=== PATIENT | female | born 1945 | race Caucasian/White ===

== ENCOUNTER 2016-10-04 12:19 | Inpatient (IN) | payer OTHER ==
--- NOTE | 2016-10-04 12:25 | EDPHY ---
H & P Stated Complaint: CP/VOMITING THIS PAST FRIDAY HPI/ROS: CHIEF COMPLAINT: Chest pain, shortness of breath. HISTORY OF PRESENT ILLNESS: The patient is a 71-year-old female who presents after an episode of chest pain Friday (5 days ago). The pain was central and radiated to both axillary regions. It took her 2 hours to walk home from work; a walk that would normally take her 20 minutes. She had to stop frequently and rest because of substernal chest pain and shortness of breath. The pain subsided that night. Since then she has had increased exertional dyspnea but no chest pain. She denies fever, vomiting, cough, calf pain or leg swelling, or other complaints at this time. REVIEW OF SYSTEMS: Full review of systems not obtained because of time constraints. Source: Patient, Family Exam Limitations: No limitations - Personal History Current Tetanus/Diphtheria Vaccine: No - Medical/Surgical History Hx Asthma: No Hx Chronic Respiratory Disease: No Hx Diabetes: No Hx Cardiac Disease: No Hx Renal Disease: No Hx Cirrhosis: No Hx Alcoholism: No Hx HIV/AIDS: No Hx Splenectomy or Spleen Trauma: No - Social History Smoking Status: Current every day smoker Additional Social History: She works at [employer]. - Physical Exam Exam: General Appearance: Alert. Vital signs reviewed. Blood pressure 131/85, heart rate 101 at triage. Abbreviated exam due to time constraints. Eyes: Pupils equal and round, no conjunctival injection, no discharge. Anicteric. Neck: No lymphadenopathy, supple. Trachea midline. No jugular venous distention. Respiratory: Lungs are clear to auscultation; no wheezes, rales, or rhonchi. Cardiovascular: Regular rate and rhythm; no murmur, rub, or gallop. Gastrointestinal: Abdomen is soft and nontender, no masses or organomegaly, bowel sounds normal. Skin: Warm and dry, no rashes on exposed skin, normal color. Extremities: No lower extremity edema, no calf tenderness or swelling. Neurological: Alert and oriented. Moving all four extremities easily and equally. Psychiatric: Slightly anxious affect. Constitutional: Initial Vital Signs Temperature (C) 36.8 C 10/04/16 12:21 Heart Rate 101 H 10/04/16 12:21 Respiratory Rate 16 10/04/16 12:21 Blood Pressure 131/85 H 10/04/16 12:21 O2 Sat (%) 94 10/04/16 12:21 O2 Delivery Mode Room Air Allergies/Adverse Reactions: No Known Allergies Allergy (Unverified 10/04/16 12:20) Home Medications: Medication Instructions Recorded NK [No Known Home Meds] 10/04/16 Medical Decision Making - Diagnostics EKG Interpretation: 12 lead EKG is interpreted in Trace master View by emergency department physician. Anterior ST elevation with anterior Q-waves. ED Course/Re-evaluation: 71-year-old female presents after an episode of chest pain on Friday with ongoing shortness of breath. An EKG was ordered and showed anterior ST elevation with Q-waves present anteriorly. Cardiac alert was called. An IV was established and labs ordered. 1230: Cardiac alert called after EKG showed acute LA. 1232: Dr. Ugalde at bedside consulting the with patient. He is recommending lab systems analyst for the patient but she is unsure at this point. An echocardiogram will be done at bedside. 1235: Echocardiogram at bedside. 1242: Bedside echocardiogram report shows significant cardiac wall dysfunction. Patient to be taken to lab systems analyst immediately. Differential Diagnosis: Although initial differential diagnosis for chest pain included acute coronary syndrome, PE, pneumonia, costochondritis and pleurisy--it was quickly apparent, after reviewing the EKG, that this patient had an STEMI. Critical Care Time: I, Dr. Liz Jorge, personally spent a total of 30 minutes of critical care time including time spent obtaining a history, performing a physical exam, monitoring interventions, collecting and interpreting tests and in discussion with consultants. This does not include time spent performing procedures or physician investigative assistant time. Patient was at risk of cardiac deterioration and possible . - Data Points Laboratory Results: Laboratory Results 10/04/16 12:35 10/04/16 12:35 Medications Given: Discontinued Medications Aspirin (Aspirin) 324 mg PO EDNOW ONE Stop: 10/04/16 12:39 Last Admin: 10/04/16 12:55 Dose: 324 mg Sodium Chloride (Ns) 1,000 mls @ 100 mls/hr IV CONT THOMAS Stop: 10/05/16 01:14 Last Admin: 10/04/16 15:52 Dose: 1,000 mls Prasugrel (Effient) 60 mg PO ONCE ONE Stop: 10/04/16 15:02 Last Admin: 10/04/16 15:56 Dose: Not Given Departure - Departure Disposition: To OP Cath/Surgery Clinical Impression: STEMI (ST elevation myocardial infarction) Qualifiers: Involved coronary artery: unspecified coronary artery Qualified Code(s): I21.3 - ST elevation (STEMI) myocardial infarction of unspecified site Condition: Fair Report Scribed for: Liz Jorge Report Scribed by: Luis Hoyt Date of Report: 10/04/16 Time of Report: 12:43 Physician Review and Approval Statement: 10/04/16 12:24 Portions of this note were transcribed by the medical clinic manager. I, Dr. Liz Jorge, personally performed the history, physical exam, and medical decision- making; and confirmed the accuracy of the information in the transcribed note.
--- NOTE | 2016-10-04 12:30 | CPEKG ---
Heart Rate: 97 RR Interval: 619 P-R Interval: 152 QRSD Interval: 88 QT Interval: 332 QTC Interval: 422 P Rockholds: 70 QRS Rockholds: 1 T Wave Rockholds: 93 EKG Severity - ABNORMAL ECG - EKG Impression: SINUS RHYTHM EKG Impression: PROBABLE LEFT ATRIAL ABNORMALITY EKG Impression: LEFT VENTRICULAR HYPERTROPHY EKG Impression: INFERIOR INFARCT, ACUTE EKG Impression: ANTERIOR INJURY, EARLY ACUTE INFARCT Electronically Signed By: Liz Jorge 04-Oct-2016 13:21:56
[2016-10-04] MEDS ORDERED: ASPIRIN 81 MG CHEWABLE TAB ONE (12:38)
[2016-10-04] MEDS ORDERED: ASPIRIN 81 MG CHEWABLE TAB PO ONE (12:38)
[2016-10-04 12:45] LABS: % IMMATURE GRANULYOCYTES 0.6 % (0.0-1.1); ABSOLUTE IMMATURE GRANULOCYTES 0.09 10^3/uL (0.00-0.10); ADD DIFF? NO; ADD MORPH? NO; ADD SCAN? NO; ATYPICAL LYMPHOCYTE FLAG 40 (0-99); FRAGMENT RBC FLAG 0 (0-99); HEMATOCRIT 44.2 % (38.0-47.0); LEFT SHIFT FLG 0 (0-99); LIPEMIA HEMOLYSIS FLAG 90 (0-99); MEAN CELL HEMOGLOBIN 29.9 pg (27.9-34.1); MEAN CELL HEMOGLOBIN CONCENTR. 33.9 g/dL (32.4-36.7); MEAN PLATELET VOLUME 11.2 fL (8.7-11.7); PLATELET CLUMPS FLAG 0 (0-99); PLATELET COUNT 223 10^3/uL (150-400); RED BLOOD CELL COUNT 5.02 10^6/uL (4.18-5.33); RED CELL DISTRIBUTION WIDTH 13.4 % (11.5-15.2)
[2016-10-04] MEDS ORDERED: LIDOCAINE 1% 30 ML SDV ONE (12:47)
[2016-10-04] MEDS ORDERED: IOPAMIDOL (ISOVUE-370) 150 ML BTL IV ONE ×3 (12:48→13:35)
[2016-10-04] MEDS ORDERED: MIDAZOLAM 2 MG/2 ML VIAL ONE ×2 (12:50→13:20)
[2016-10-04] MEDS ORDERED: fentaNYL 100 MCG/2 ML INJ ONE ×2 (12:50→14:27)
[2016-10-04] MEDS ORDERED: BIVALIRUDIN 250 MG/5 ML VIAL IV ONE ×2 (13:09→14:10)
[2016-10-04] MEDS ORDERED: NITROGLYCERIN 1,500 MCG/15 ML VIAL MISC ONE (13:10)
[2016-10-04 13:12] LABS: ANION GAP 10 mEq/L (8-16); CALCIUM 9.2 mg/dL (8.5-10.4); CARBON DIOXIDE 23 mEq/l (22-31); CHLORIDE 104 mEq/L (97-110); CREATININE 0.7 mg/dL (0.6-1.0); GLOMERULAR FILTRATION RATE > 60; GLUCOSE 108 mg/dL (70-100); POTASSIUM 3.4 mEq/L (3.5-5.2); SODIUM 137 mEq/L (134-144)
[2016-10-04] MEDS ORDERED: ETOMIDATE 40 MG/20 ML INJ ONE (13:36)
[2016-10-04] MEDS ORDERED: HEPARIN 10,000 UNIT/10 ML MDV ONE (13:52)
[2016-10-04] MEDS ORDERED: ATROPINE SULFATE 1 MG/10 ML SYR ONE (13:56)
--- NOTE | 2016-10-04 13:56 | PDDXCAT ---
Diagnostic Cath Note - . Date: 10/04/16 Intervention: PTCA and drug eluting stent implantation, mechanical thrombectomy *Procedure 1. selective coronary angiography 2. PTCA and drug-eluting stent implantation x 4 (distal, mid and proximal LAD) 3. mechanical thrombectomy of the LAD Indication: I was called for an interventional consultation after the identification of a 100% mid LAD occlusion by Dr. Ugalde during diagnostic catheterization NAM 0 flow. The patient was having a subacute myocardial infarction with presentation that began on Friday. Access: right femoral artery *Materials Left Heart Cath size: 6F Left Heart Cath materials: JL4.0, Intuition Guide Wire, Intuition Guide Wire, 1.5 x 12 mm Emerge, 2.5 x 20 mm Emerge, Spiroflex 4F 135 cm, AngioJet, 1.5 x 12 mm Emerge, 2.5 x 20 mm Emerge, 2.5 x 38 mm Synergy, 2.75 mm Synergy, 2.5 x 16 mm Synergy, 3 x 12 mm Synergy drug eluting stent. *Findings-Selective Coronary Angiography LAD: There is a 100% mid LAD occlusion with NAM 0 flow. *Intervention A 6 Angolan JL4 guiding catheter was used for guide catheter support. A 0.014" Intuition Guide Wire was advanced across the mid LAD under direct fluoroscopic and angiographic guidance. A 1.5 x 12 mm Emerge balloon was used to pre-dilate the lesion under a maximum of 10 christiano of pressure. We upsized the balloon and exchanged with a 2.5 x 20 mm Emerge balloon. This was serially inflated to a maximum of 11 christiano of pressure. There was NAM I flow to the distal LAD. Status post balloon inflation, we proceeded with mechanical Thrombectomy with the use of a 4 Angolan Spiroflex catheter and AngioJet Thrombectomy system. Mechanical thrombectomy was performed to remove residual clot from the LAD proper. The AngioJet catheter was removed with injection revealing evidence of NAM II flow to the distal vessel. There was evidence of a distal LAD wire perforation and urgent echocardiography was performed. There was no evidence of cardiac tamponade and we proceeded with revascularization of the LAD. An Intuition Guide Wire was re-inserted into the distal LAD and a 2.5 x 38 mm Synergy drug eluting stent was was inflated under 14 christiano of pressure. The stent was removed and a 2.75 x 38 mm Synergy drug eluting stent was placed just proximal to the first stent. This was inflated to a maximum of 16 christiano of pressure. Angiographically, there was evidence of a contained dissection at the proximal end of the stent. This was repaired with a 2.5 x 16 mm Synergy drug eluting stent deployed under 11 christiano of pressure and in an overlapping fashion. Status post stent implantation, there was NAM II flow to the distal LAD. We then turned our attention to a plaque rupture just proximal to the LAD total occlusion. There was evidence of staining of the wall consistent with plaque rupture. For this reason, we placed a 3 x 12 mm Synergy drug eluting stent was under 12 christiano of pressure. Following the procedure these was NAM II flow to the distal vessel. No evidence of extravasation of contrast was identified. *Summary Complications: Wire perforation of the distal LAD. Estimated blood loss: <100 ml Closure method: Angioseal Assessment/Conclusion: 1. Subacute anterior myocardial infarction with a 100% occlusion of the mid LAD. This vessel was revascularized with drug-eluting stent implantation x 4 and residual clot was removed with mechanical thrombectomy. There was NAM II flow to the distal vessel with no evidence of extravasation of contrast status post intervention. The patient should be treated with terrance inhibitor, aldosterone antagonist, beta karina, high-dose statin and dual anti-platelet therapy with ASA and Effient. Brilinta was not utilized secondary to the patient's smoking history and high risk of shortness of breath related to therapy in a smoker. COUMADIN FOR THE FIRST SIX MONTHS MAY BE NECESSARY TO REDUCE RISK OF APICAL THROMBUS (THE ASA SHOULD BE DISCONTINUE AFTER THE FIRST 30 DAYS OF "TRIPLE THERAPY"). LIMITED ECHO SHOULD BE PERFORMED TOMORROW TO RULE OUT PERICARDIAL EFFUSION. Patient Problems: Problems Problem Status Onset STEMI (ST elevation myocardial infarction) Acute
[2016-10-04] MEDS ORDERED: PRASUGREL HCL 10 MG TAB PO ONE (15:01)
[2016-10-04] MEDS ORDERED: ATROPINE SULFATE 1 MG/10 ML SYR IVP PRN (15:01)
[2016-10-04] MEDS ORDERED: ONDANSETRON 4 MG/2 ML VIAL IVP PRN (15:01)
[2016-10-04] MEDS ORDERED: ACETAMINOPHEN 325 MG TAB PO PRN (15:01)
[2016-10-04] MEDS ORDERED: LORazepam 2 MG/ML INJ IVP PRN (15:01)
[2016-10-04] MEDS ORDERED: TEMAZEPAM 15 MG CAP PO PRN (15:01)
[2016-10-04] MEDS ORDERED: ONDANSETRON DISINTEGRATING 4 MG TAB PO PRN (15:01)
[2016-10-04] MEDS ORDERED: NITROGLYCERIN 0.4 MG BTL SL PRN (15:01)
[2016-10-04] MEDS ORDERED: PRASUGREL HCL 10 MG TAB ONE (15:09)
[2016-10-04] MEDS ORDERED: NS 1,000 ML IV SCH (15:15)
--- NOTE | 2016-10-04 15:20 | PDCARCONS ---
Cardiology Consult Reason for Consult: Abnormal ECG Chief Complaint: Chest pains with shortness of breath, five days ago Requesting Physician: ER History of Present Illness: Patient is a 71 y/o female with reportedly unremarkable past medical/ cardiovascular history (no CAD, HTN, HLP, or DM), who presented to [facility] ER with complaints of continued chest discomfort (not pain at present) as well as rather profound dyspnea with limited activity. ECG in the ER with diffuse, anterior ST elevation as well as deep, well defined Q waves to the anterior leads. No gen "chest pains" were being noted while she was assessed in the ER , but there was an expected degree of anxiety about the evolution of her evaluation. Family was present with the patient in the ER today, and given the ongoing ST elevations noted (without gen chest pains), we accelerated the desire for the patient to be taken emergently to the lab clerk for assessment of the lesion known to be involving the LAD. No voiced PND or orthopnea, no nausea or emesis. No dizziness, but moderate to severe dyspnea, weakness, and fatigue were noted. Remainder of the 10 point review of symptoms was unremarkable. History Information - Allergies/Home Medication List Allergies/Adverse Reactions: No Known Allergies Allergy (Unverified 10/04/16 12:20) Home Medications: NK [No Known Home Meds] 10/04/16 [Last Taken Unknown] I have personally reviewed and updated: family history, medical history, social history, surgical history - Past Medical History no pertinent PMH - Surgical History Reports: no pertinent surgical hx - Family History Positive for: non-pertinent - Social History Smoking Status: Current every day smoker Alcohol Use: None Drug Use: None Cardiac History - Cardiac History Cardiac Risk Factors: age > 65 Timing/Duration: Days Severity: severe Severity Scale: 10 Location: substernal, central, epigastric Activities at Onset: activity Modifying Factors: improves with: rest Associated Symptoms: chest pain, shortness of breath, weakness NAM Risk Evaluation age greater or equal to 65: yes greater or equal to 3 CAD risk factors: no known CAD(stenosis greater or eqaul to 50%): no ASA use in past 7 days: no severe angina(greater or equal to 2 episodes in 24hrs): yes EKG ST changes greater or equal to 0.5mm: yes positive cardiac marker: yes Total Score: 5 NAM Score: 26.2% risk Physical Exam Temp Pulse Resp BP Pulse Ox 36.9 C 78 18 123/85 H 93 10/04/16 12:56 10/04/16 12:56 10/04/16 12:56 10/04/16 12:56 10/04/16 12:56 Constitutional: appears nourished, not in pain, obese Eyes: PERRL Ears, Nose, Mouth, Throat: moist mucous membranes, hearing normal, ears appear normal Cardiovascular: regular rate and rhythym, JVD, pulses symmetric bilaterally, No edema Peripheral Pulses: 2+: dorsalis-pedis (R), dorsalis-pedis (L) Respiratory: no respiratory distress, no rales or rhonchi, reduced air movement (in the bases) Gastrointestinal: normoactive bowel sounds Skin: warm, normal color, No mottled Musculoskeletal: full muscle strength, no muscle tenderness Neurologic: AAOx3, sensation intact bilaterally, CN II-XII Intact Psychiatric: interacting appropriately, not encephalopathic, anxious Lab and Imaging 10/04/16 12:35 10/04/16 12:35 WBC 15.16 10^3/uL (3.80-9.50) H 10/04/16 12:35 RBC 5.02 10^6/uL (4.18-5.33) 10/04/16 12:35 Hgb 15.0 g/dL (12.6-16.3) 10/04/16 12:35 Hct 44.2 % (38.0-47.0) 10/04/16 12:35 MCV 88.0 fL (81.5-99.8) 10/04/16 12:35 MCH 29.9 pg (27.9-34.1) 10/04/16 12:35 MCHC 33.9 g/dL (32.4-36.7) 10/04/16 12:35 RDW 13.4 % (11.5-15.2) 10/04/16 12:35 Plt Count 223 10^3/uL (150-400) 10/04/16 12:35 MPV 11.2 fL (8.7-11.7) 10/04/16 12:35 Neut % (Auto) 73.7 % (39.3-74.2) 10/04/16 12:35 Lymph % (Auto) 11.9 % (15.0-45.0) L 10/04/16 12:35 Storey % (Auto) 13.3 % (4.5-13.0) H 10/04/16 12:35 Eos % (Auto) 0.2 % (0.6-7.6) L 10/04/16 12:35 Baso % (Auto) 0.3 % (0.3-1.7) 10/04/16 12:35 Nucleat RBC Rel Count 0.0 % (0.0-0.2) 10/04/16 12:35 Absolute Neuts (auto) 11.18 10^3/uL (1.70-6.50) H 10/04/16 12:35 Absolute Lymphs (auto) 1.81 10^3/uL (1.00-3.00) 10/04/16 12:35 Absolute Monos (auto) 2.01 10^3/uL (0.30-0.80) H 10/04/16 12:35 Absolute Eos (auto) 0.03 10^3/uL (0.03-0.40) 10/04/16 12:35 Absolute Basos (auto) 0.04 10^3/uL (0.02-0.10) 10/04/16 12:35 Absolute Nucleated RBC 0.00 10^3/uL (0-0.01) 10/04/16 12:35 Immature Gran % 0.6 % (0.0-1.1) 10/04/16 12:35 Immature Gran # 0.09 10^3/uL (0.00-0.10) 10/04/16 12:35 Sodium 137 mEq/L (134-144) 10/04/16 12:35 Potassium 3.4 mEq/L (3.5-5.2) L 10/04/16 12:35 Chloride 104 mEq/L (97-110) 10/04/16 12:35 Carbon Dioxide 23 mEq/l (22-31) 10/04/16 12:35 Anion Gap 10 mEq/L (8-16) 10/04/16 12:35 BUN 19 mg/dL (7-23) 10/04/16 12:35 Creatinine 0.7 mg/dL (0.6-1.0) 10/04/16 12:35 Estimated GFR > 60 10/04/16 12:35 Glucose 108 mg/dL (70-100) H 10/04/16 12:35 Calcium 9.2 mg/dL (8.5-10.4) 10/04/16 12:35 Troponin I 17.500 ng/mL (0-0.034) H 10/04/16 12:35 Visualized and Interpreted EKG results: Yes EKG Interpretation: Positive for: normal sinsus rhythm, ST elevation (deep Q waves to the precordial leads) Echocardiogram: Bedside echo with severe reduction in LVEF (20-25%) with large region of anteroapical akinesis noted. Basilar wall motion was grossly .. A/P Assessment: 71 y/o female with previously unremarkable past medical history, with likely large, anterior myocardial infarction several days ago (5 days). ECG in the ER today with ongoing ST elevation and deep Q waves to the anterior/anteroseptal leads. ECHO with dramatic akinesis to the aforementioned region of the heart. Strong recommendations for patient to proceed with angiography for better assessment of the degree of CAD noted, as well as attempt some degree of salvage to the remaining myocardium. Plan: will urgently take the patient to the cardiac lab clerk. Patient and family were in agreement with these plans. strong recommendations for complete smoking cessation (patient reportedly "quit" on Friday, in the midst of the symptoms being noted.
--- NOTE | 2016-10-04 15:30 | PDDXCAT ---
Diagnostic Cath Note - . 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 no obvious luminal irregularities were noted. LAD: Large vessel with minor luminal irregularities to the proximal and mid vessel. In the distal mid vessel, there was a 100% occlusion with limited left to left collaterals noted. This appears to be a relatively recent lesion. There was a sizable septal mohs surgeon with branch vessels, larger than "normal" likely secondary to collateral demand LCX: Large vessel with diffuse disease in the mid vessel that is 70-80% stenotic. There are extensive collaterals to the distal LAD as well as the aforementioned septal mohs surgeon. No obvious principal OM was noted. there were also left to right collaterals to the distal RCA RCA: Old 100% occlusion to the proximal vessel. There were small right to right collaterals noted, which did little for the mid portion of the RCA. Non dominant vessel. Ramus: Small sized vessel with diffuse disease throughout EDP: 27 mm Hg LVEF: 25% Wall motion: Akinesis to the anterior, anteroseptal, and anterolateral pollack Complications: none Assessment: 71 y/o female with critical, new mid LAD lesion as well as old 100% proximal RCA lesion. The new LAD lesion was likely the more acute of the two lesions. Plan: Dr. Marisol Murguia to attempt intervention to the mid LAD lesion. Intervention: pending Patient Problems: Problems Problem Status Onset STEMI (ST elevation myocardial infarction) Acute
--- NOTE | 2016-10-04 16:40 | CPEKG ---
Heart Rate: 89 RR Interval: 674 P-R Interval: 168 QRSD Interval: 90 QT Interval: 352 QTC Interval: 429 P Lignum: 72 QRS Lignum: 24 T Wave Lignum: 74 EKG Severity - ABNORMAL ECG - EKG Impression: SINUS RHYTHM EKG Impression: PROBABLE LEFT ATRIAL ABNORMALITY EKG Impression: ANTERIOR INFARCT, ACUTE EKG Impression: BORDERLINE ST ELEVATION, INFERIOR LEADS Electronically Signed By: David Ugalde 05-Oct-2016 10:39:24
[2016-10-04 16:56] LABS: CREATINE KINASE-MB FRACTION 4.92 ng/mL (0-3.19)
[2016-10-04 17:05] LABS: CK-MB INTERPRETATION NEGATIVE (NEGATIVE)
--- NOTE | 2016-10-04 17:43 | ECHO ---
[id number] + + [address] : : [place] [address] : : [phone] + + Adult Echocardiographic Report + + :Name: HONORIO VILLAVICENCIO Study Date: 10/04/2016 02:39 PM : : Hospital Admission Number: [id number] : :: 1945 Gender: Female : :Age: 71 yrs Race: PTNP : :Reason For Study: Eval for Pericardial Effusion : :History: Post GA, Cath : + + Left Ventricle Ejection Fraction = 25-30%. There is apical hypokinesis. Pericardium/Pleural trivial pericardial effusion. Conclusion This is a limited echo to evaluate for pericardial effusion during cath. Ejection Fraction = 25-30%. There is severe apical (entire region) akinesis. trivial pericardial effusion. Final Reading Physician: Genet Her signed on 10/04/2016 05:42 PM Ordering Physician: David Ugalde Performed By: Ambar Alejandro, MARGARETH
--- NOTE | 2016-10-04 17:50 | ECHO ---
[id number] + + [address] : : [place] [address] : : [phone] + + Adult Echocardiographic Report + + :Name: HONORIO VILLAVICENCIO Study Date: 10/04/2016 12:48 PM : : Hospital Admission Number: [id number] : :: 1945 Gender: Female : :Age: 71 yrs Race: PTNP : :Reason For Study: Cardiac alert/eval LV function : + + Left Ventricle EF estimate is 20-25%. All LV mid and apical segments are akinetic. Conclusion Limited 2-D echo. All LV mid and apical segments are akinetic. EF estimate is 20-25%. Final Reading Physician: Genet Her signed on 10/04/2016 05:48 PM Ordering Physician: SUZETTE PEREZ Performed By: Ambar Alejandro RDCS
[2016-10-04] MEDS: CARVEDILOL 3.125 MG TAB PO SCH (18:45)
[2016-10-04 19:22] LABS: CREATINE KINASE-MB FRACTION 6.24 ng/mL (0-3.19)
[2016-10-04 19:36] LABS: CK-MB INTERPRETATION NEGATIVE (NEGATIVE)
[2016-10-04 22:11] LABS: CK-MB INTERPRETATION NEGATIVE (NEGATIVE)
[2016-10-05 04:50] LABS: % IMMATURE GRANULYOCYTES 0.8 % (0.0-1.1); ABSOLUTE IMMATURE GRANULOCYTES 0.09 10^3/uL (0.00-0.10); ADD DIFF? NO; ADD MORPH? NO; ADD SCAN? NO; ATYPICAL LYMPHOCYTE FLAG 60 (0-99); FRAGMENT RBC FLAG 0 (0-99); HEMOGLOBIN 12.3 g/dL (12.6-16.3); LEFT SHIFT FLG 10 (0-99); LIPEMIA HEMOLYSIS FLAG 80 (0-99); MEAN CELL HEMOGLOBIN 30.2 pg (27.9-34.1); MEAN CELL HEMOGLOBIN CONCENTR. 33.2 g/dL (32.4-36.7); MEAN CELL VOLUME 90.9 fL (81.5-99.8); MEAN PLATELET VOLUME 11.4 fL (8.7-11.7); PLATELET CLUMPS FLAG 0 (0-99); PLATELET COUNT 193 10^3/uL (150-400); RED BLOOD CELL COUNT 4.07 10^6/uL (4.18-5.33); RED CELL DISTRIBUTION WIDTH 13.3 % (11.5-15.2)
[2016-10-05 05:04] LABS: ALBUMIN 2.5 g/dL (3.5-5.0); ANION GAP 4 mEq/L (8-16); ASPARTATE AMINOTRANSFERASE 69 IU/L (14-46); BILIRUBIN,TOTAL 1.1 mg/dL (0.1-1.4); CALCIUM 8.4 mg/dL (8.5-10.4); CARBON DIOXIDE 25 mEq/l (22-31); CHLORIDE 108 mEq/L (97-110); CREATININE 0.6 mg/dL (0.6-1.0); GLOMERULAR FILTRATION RATE > 60; GLUCOSE 92 mg/dL (70-100); LACTATE DEHYDROGENASE 2002 IU/L (313-618); MAGNESIUM 2.1 mg/dL (1.6-2.3); POTASSIUM 3.5 mEq/L (3.5-5.2); SODIUM 137 mEq/L (134-144)
[2016-10-05 05:58] LABS: CK-MB INTERPRETATION NEGATIVE (NEGATIVE)
[2016-10-05] MEDS: EPLERENONE 25 MG TAB PO SCH (08:04)
[2016-10-05] MEDS: ASPIRIN EC 325 MG TAB PO SCH (08:07)
[2016-10-05] MEDS: ATORVASTATIN CALCIUM 40 MG TAB PO SCH (08:07)
[2016-10-05] MEDS: CARVEDILOL 3.125 MG TAB PO SCH ×2 (08:07→18:04)
[2016-10-05] MEDS: LISINOPRIL 2.5 MG TAB PO SCH (08:07)
[2016-10-05] MEDS: PRASUGREL HCL 10 MG TAB PO SCH (08:08)
--- NOTE | 2016-10-05 10:53 | ECHO ---
[id number] + + [address] : : [place] [address] : : [phone] + + Adult Echocardiographic Report + ---------+ :Name: HONORIO VILLAVICENCIO Date: 10/05/2016 09:14 AM : : Hospital Admission Number: [id number] Autumn no: 256: :: 1945 Gender: Female Height: 63 i n : :Age: 71 yrs Race: PTNP Weight: 147 lb : :Reason For Study: R/O pericardial effusion : : BSA: 1.7 met ers2 : + ---------+ MMode/2D Measurements \T\ Calculations LVLd ap4: 8.1 cm SV(MOD-sp4): 33.0 ml EDV(MOD-sp4): 94.0 ml LVLs ap4: 8.0 cm ESV(MOD-sp4): 61.0 ml EF(MOD-sp4): 35.1 % Normal Measurement Values: + + :LVIDd (3.5-5.7cm) IVSd (0.6-1.1cm) LVPWd (0.6-1.1cm) Aortic Root (2.0-3.7cm)Left Atrium (1.5-4.0cm): :LV Vol(d) (76-115ml) LV Vol(s) (29-48ml) Ejec Fraction (50-65%)PV Dexter (0.6- 1.2m/s) TV Dexter (0.4-1.0m/s) : :MV E Dexter (0.8-1.0m/s)MV A Dexter (0.3-1.0m/s)LVOT Dexter (0.7-1.2m/s) Asc Ao Dexter ( 0.9-1.8m/s) : + + Left Ventricle Ejection Fraction = 30-35%. Akinetic [place]. Pericardium/Pleural There is a fat pad seen. There is no pericardial effusion. Conclusion This is a limited echo to eval the LV and r/o pericardial effusion. Ejection Fraction = 30-35%. Mid to distal anterior wall, apex and mid to distal septum are akinetic. There is no pericardial effusion. Final Reading Physician: Ramon Johnson MD electronically signed on 10/05/2016 10:51 AM Ordering Physician: Saul Murguia Performed By: Kirti Solis
--- NOTE | 2016-10-05 12:03 | PDCARPN ---
Cardiology Progress Note Chief Complaint: Subacute presentation of anterior UT, sp stents Assessment/Plan: Assessment: Subacute presentation of anterior myocardial infarction Multiple stents to LAD, microperforation of LAD Plan: - echocardiogram today does not show any pericardial effusion but does show LV EF of 25-30% with mid to distal anterior wall, mid to distal septum and apex akinetic. - Patient had several questions regarding here starting blood pressure medications despite her blood pressure being in the low 100s, explain pathophysiology after acute myocardial infarction to her in presence of nurse . She is agreeable to taking eplerenone, ANGIE-inhibitor and beta-karina at the current doses. Given borderline low blood pressure will watch in the ICU. - Discussed risk of LV thrombus with large anterior myocardial infarction. Will start her on warfarin for 3-6 months. We discussed risk of triple therapy including life-threatening bleeding and she understands the rationale for adding warfarin to her antiplatelet agents - we discussed the need for life vest upon discharge. This will be arranged on Friday. Her left ventricular ejection fraction will need to be assessed at 45 days and if still less than 35%, she is a candidate for an ICD. 10/05/16 12:00 Subjective: Feels well today, denies any chest pain. Does have several questions. Reviewed/Discussed With: multidisciplinary team Time Spent With Patient: 30 minutes Objective: Vital Signs (8 Hrs) Temp Pulse Resp BP Pulse Ox 10/05/16 11:00 79 22 H 110/68 94 10/05/16 10:00 72 13 101/87 H 93 10/05/16 09:00 76 13 103/56 L 93 10/05/16 08:07 86 108/64 10/05/16 08:00 86 22 H 101/87 H 94 10/05/16 07:00 78 20 101/63 93 10/05/16 06:00 85 18 106/64 96 10/05/16 04:00 37.0 C 80 18 109/60 96 Intake/Output (24 Hrs) 10/03/16 10/04/16 10/05/16 11:59 11:59 11:59 Intake Total 2315 Output Total 1200 Balance 1115 Intake: Oral (ml) 1060 IV Intake (ml) 1000 IV Infused (ml) 255 Ns 1,000 ml @ 100 mls/hr 255 IV CONT THOMAS Rx#: [id number] Output: Urine (ml) 1200 Bedpan 1200 Other: Weight 67 kg Number of Voids Bedpan 0 Result Diagrams: 10/05/16 04:30 10/05/16 04:30 Cardiac Labs: Cardiac Lab Results (72 Hrs) 10/05/16 10/05/16 10/04/16 04:30 04:30 21:00 CK-MB (CK-2) Fraction 15.50 H 12.50 H Troponin I 19.800 H 20.600 H 10/04/16 10/04/16 18:20 16:10 CK-MB (CK-2) Fraction 6.24 H 4.92 H Troponin I 20.200 H 21.200 H Telemetry: Sinus rhythm, ST-elevation, no ventricular arrhythmias Echocardiogram: no pericardial effusion. Left ventricular ejection fraction with findings consistent w completed anterior myocardial infarction ICD10 Worksheet Patient Problems: Problems Problem Status Onset STEMI (ST elevation myocardial infarction) Acute
--- NOTE | 2016-10-05 12:54 | CPEKG ---
Heart Rate: 76 RR Interval: 789 P-R Interval: 172 QRSD Interval: 98 QT Interval: 392 QTC Interval: 441 P Ariel: 71 QRS [place]: 56 T Wave [place]: 77 EKG Severity - ABNORMAL ECG - EKG Impression: SINUS RHYTHM EKG Impression: ANTERIOR INFARCT, ACUTE EKG Impression: ST ELEVATION, CONSIDER PERICARDITIS OR LARGE ANTERIOR ACUTE MS Electronically Signed By: Patrick Reddy 07-Oct-2016 08:38:17
--- NOTE | 2016-10-05 15:12 | CPEKG ---
Heart Rate: 77 RR Interval: 779 P-R Interval: 172 QRSD Interval: 98 QT Interval: 396 QTC Interval: 449 P [place]: 66 QRS [place]: 28 T Wave [place]: 85 EKG Severity - ABNORMAL ECG - EKG Impression: SINUS RHYTHM EKG Impression: DIFFUSE ST ELEVATION, CONSIDER PERICARDITIS OR LARGE ANTERIOR-SEPTAL ACUTE SD EKG Impression: LEFT ATRIAL ENLARGEMENT EKG Impression: LEFT VENTRICULAR HYPERTROPHY Electronically Signed By: Patrick Reddy 07-Oct-2016 08:37:35
[2016-10-05] MEDS: WARFARIN SODIUM 3 MG TAB PO SCH (15:58)
[2016-10-06 00:34] LABS: CREATINE KINASE-MB FRACTION 5.03 ng/mL (0-3.19)
[2016-10-06 01:00] LABS: CK-MB INTERPRETATION NEGATIVE (NEGATIVE)
[2016-10-06 05:00] LABS: INR 1.09 (0.83-1.16)
[2016-10-06 05:02] LABS: ANION GAP 7 mEq/L (8-16); CALCIUM 8.6 mg/dL (8.5-10.4); CARBON DIOXIDE 25 mEq/l (22-31); CHLORIDE 108 mEq/L (97-110); CREATININE 0.7 mg/dL (0.6-1.0); GLOMERULAR FILTRATION RATE > 60; GLUCOSE 89 mg/dL (70-100); POTASSIUM 3.9 mEq/L (3.5-5.2); SODIUM 140 mEq/L (134-144)
[2016-10-06] MEDS: LISINOPRIL 2.5 MG TAB PO SCH (08:24)
[2016-10-06] MEDS: ATORVASTATIN CALCIUM 40 MG TAB PO SCH (08:24)
[2016-10-06] MEDS: CARVEDILOL 3.125 MG TAB PO SCH ×2 (08:24→17:12)
[2016-10-06] MEDS: EPLERENONE 25 MG TAB PO SCH (08:24)
[2016-10-06] MEDS: PRASUGREL HCL 10 MG TAB PO SCH (08:24)
[2016-10-06] MEDS: ASPIRIN EC 325 MG TAB PO SCH (08:24)
--- NOTE | 2016-10-06 09:39 | PDCARPN ---
Cardiology Progress Note Chief Complaint: Mrs. Loaiza is a pleasant 71 year old female admitted on Tuesday October 04, 2016 with late presentation of anterior STEMI with PCI x 3 with MALICK to prox, mid and distal LAD with micro wire perf of the LAD. Stat in labor economist echo, showed now pericardial effusion. She remained in ICU until now due to hypotension. BP this AM is stable with SBP in the low 100's. She is asymptomatic. Holter demonstrates NSR with rare PVC's. Troponin trending down, 14.5 today. Peak of 20.6. Echo demonstrates LVEF 25-30% with apical Akinesis. She will require Lifevest prior to discharge. Discussed Life vest in detail. Discussed potential need for ICD in 40 days depending on LVEF. She was started on coumadin. She is on aspirin 325 mg and Effient 10 mg daily. NO bleeing issues. Groin site without hematoma. Discussed smoking cessation at length. Discussed her current medical condition in detail with daughter in law who is an RN. Assessment/Plan: Assessment: 1. Late presentation of anterior STEMI 2. CAD with PCI x 3 to LAD with MALICK on 10/04/16 3. Perforation of LAD with wire during C, no pericardial effusion 4. Ischemic Cardiomyopathy with LVEF 25-30% with apical hypokinesis 5. Smoking history up to day of admisison Plan: 1. Continue current medications 2. OK to transfer to [facility] 3. Coumadin in the setting of apical HK for 3-6 months 4. Life vest discussed in detail. Will need prior to discharge 5. Smoking cessation discussed for 5 minutes 6. Will need cardiac rehab consult prior to discharge 45 minutes spent coordinating care . 10/06/16 09:41 Reviewed/Discussed With: family, multidisciplinary team Objective: Vital Signs (8 Hrs) Temp Pulse Resp BP Pulse Ox 10/06/16 08:00 80 16 109/65 97 10/06/16 07:00 77 16 114/65 96 10/06/16 06:00 68 18 102/65 95 10/06/16 05:00 68 18 106/67 98 10/06/16 04:00 37.0 C 68 16 92/60 L 96 10/06/16 02:00 68 18 103/60 94 Intake/Output (24 Hrs) 10/05/16 10/06/16 10/07/16 05:59 05:59 05:59 Intake Total 2315 1400 Output Total 1200 500 Balance 1115 900 Intake: Oral (ml) 1060 1400 IV Intake (ml) 1000 IV Infused (ml) 255 Ns 1,000 ml @ 100 mls/hr 255 IV CONT THOMAS Rx#: [id number] Output: Urine (ml) 1200 500 Bedpan 1200 500 Other: Weight 67 kg Intake Quantity Yes Sufficient Number of Voids Bedpan 0 1 Result Diagrams: 10/05/16 04:30 10/06/16 04:39 Cardiac Labs: Cardiac Lab Results (72 Hrs) 10/06/16 10/05/16 10/05/16 00:00 04:30 04:30 CK-MB (CK-2) Fraction 5.03 H 15.50 H Troponin I 14.500 H 19.800 H 10/04/16 10/04/16 10/04/16 21:00 18:20 16:10 CK-MB (CK-2) Fraction 12.50 H 6.24 H 4.92 H Troponin I 20.600 H 20.200 H 21.200 H Telemetry: NSR with rare PVC's Echocardiogram: LVEF 25-30% - Physical Exam Constitutional: WDWN Eyes: PERRL Ears, Nose, Mouth, Throat: moist mucous membranes Cardiovascular: regular rate and rhythm, no murmurs, no rubs, no gallops Peripheral Pulses: 1+: dorsalis-pedis (R), dorsalis-pedis (L), 2+: carotid (R), carotid (L), femoral (R) Respiratory: clear to auscultate bilat, no crackles, no wheezes Gastrointestinal: normoactive bowel sounds, no tenderness Skin: no rashes, other (Right groin without hematoma or ecchymosis) Musculoskeletal: no muscular tenderness Neurologic: AAOx3, CN II-XII grossly intact Psychiatric: cooperative, interactive, following commands ICD10 Worksheet Patient Problems: Problems Problem Status Onset STEMI (ST elevation myocardial infarction) Acute
--- NOTE | 2016-10-06 10:12 | CPEKG ---
Heart Rate: 69 RR Interval: 870 P-R Interval: 192 QRSD Interval: 90 QT Interval: 404 QTC Interval: 433 P [place]: 67 QRS [place]: 37 T Wave [place]: 78 EKG Severity - ABNORMAL ECG - EKG Impression: SINUS RHYTHM EKG Impression: LEFT ATRIAL ENLARGEMENT EKG Impression: DIFFUSE ST ELEVATION, CONSIDER PERICARDITIS Electronically Signed By: Patrick Reddy 07-Oct-2016 08:36:35
[2016-10-06] MEDS: WARFARIN SODIUM 3 MG TAB PO SCH (17:12)
[2016-10-07 04:48] LABS: INR 1.2 (0.83-1.16); PROTIME(PATIENT) 15.2 SEC (12.0-15.0)
[2016-10-07 05:03] LABS: ANION GAP 7 mEq/L (8-16); CARBON DIOXIDE 25 mEq/l (22-31); CHLORIDE 108 mEq/L (97-110); CREATININE 0.7 mg/dL (0.6-1.0); GLOMERULAR FILTRATION RATE > 60; GLUCOSE 88 mg/dL (70-100); POTASSIUM 3.9 mEq/L (3.5-5.2); SODIUM 140 mEq/L (134-144)
[2016-10-07] MEDS: ASPIRIN EC 325 MG TAB PO SCH (07:50)
[2016-10-07] MEDS: LISINOPRIL 2.5 MG TAB PO SCH (07:50)
[2016-10-07] MEDS: PRASUGREL HCL 10 MG TAB PO SCH (07:50)
[2016-10-07] MEDS: CARVEDILOL 3.125 MG TAB PO SCH (07:50)
[2016-10-07] MEDS: ATORVASTATIN CALCIUM 40 MG TAB PO SCH (07:51)
[2016-10-07] MEDS: EPLERENONE 25 MG TAB PO SCH (07:51)
--- NOTE | 2016-10-07 08:48 | CPEKG ---
Heart Rate: 78 RR Interval: 769 P-R Interval: 184 QRSD Interval: 96 QT Interval: 380 QTC Interval: 433 P [place]: 65 QRS [place]: 64 T Wave [place]: 54 EKG Severity - ABNORMAL ECG - EKG Impression: SINUS RHYTHM EKG Impression: PROBABLE LEFT ATRIAL ABNORMALITY EKG Impression: ANTERIOR INJURY, EARLY ACUTE INFARCT EKG Impression: BORDERLINE ST ELEVATION, INFERIOR LEADS Electronically Signed By: Patrick Reddy 08-Oct-2016 06:36:21
--- NOTE | 2016-10-07 09:14 | SOAPPROG ---
SOAP Progress Note Assessment/Plan: Assessment: Plan: Subjective: doing well today . she has no cp she has no sob she has no wheezing/ Objective: Vital Signs Temp Pulse Resp BP Pulse Ox 36.7 C 75 19 114/68 95 10/07/16 07:47 10/07/16 07:47 10/07/16 07:47 10/07/16 07:47 10/07/16 07:47 Laboratory Results 10/05/16 04:30 10/07/16 04:25 10/06/16 10/07/16 10/08/16 05:59 05:59 05:59 Intake Total 1400 1000 Output Total 500 1500 Balance 900 -500 PT 15.2 SEC (12.0-15.0) H 10/07/16 04:25 INR 1.20 (0.83-1.16) H 10/07/16 04:25 Physical Exam - Physical Exam General Appearance: alert, no apparent distress Neck: full range of motion Respiratory: rhonchi Cardiac/Chest: regular rate, rhythm, systolic murmur Abdomen: non-tender, soft, No organomegaly Skin: normal color, warm/dry Neuro/Psych: alert, normal mood/affect ICD10 Worksheet Patient Problems: Problems Problem Status Onset STEMI (ST elevation myocardial infarction) Acute
[2016-10-07] MEDS ORDERED: CARVEDILOL 3.125 MG TAB PO SCH (09:21)
[2016-10-07] MEDS ORDERED: CARVEDILOL 3.125 MG TAB PO ONE (10:30)
[2016-10-07] MEDS: WARFARIN SODIUM 3 MG TAB PO SCH (16:21)
[2016-10-08 05:35] LABS: INR 1.43 (0.83-1.16); PROTIME(PATIENT) 17.4 SEC (12.0-15.0)
[2016-10-08] MEDS: LISINOPRIL 2.5 MG TAB PO SCH (08:27)
[2016-10-08] MEDS: EPLERENONE 25 MG TAB PO SCH (08:27)
[2016-10-08] MEDS: ASPIRIN EC 325 MG TAB PO SCH (08:27)
[2016-10-08] MEDS: ATORVASTATIN CALCIUM 40 MG TAB PO SCH (08:27)
[2016-10-08] MEDS: PRASUGREL HCL 10 MG TAB PO SCH (08:27)
[2016-10-08] MEDS ORDERED: CARVEDILOL 3.125 MG TAB PO SCH (09:00)
[2016-10-08 11:46] VITALS: BP 96/57; PULSE 68; RESP 20; TEMP 98.1; O2SAT 100
--- NOTE | 2016-10-08 12:16 | GDS ---
[f rep st] DISCHARGE SUMMARY DIAGNOSIS: ST elevation myocardial infarction. She is a woman who has a history of smoking. She came in after an episode of chest pain, walking home from work. The pain was 5 days earlier. The patient came into the hospital 5 days later, was brought to the cardiac qc lab technician and had 100% occlusion of the left anterior descending artery. She has no history of coronary artery disease, hypertension, hyperlipidemia, diabetes mellitus. MEDICATIONS: She was taking no home medications. ALLERGIES: No allergies. FAMILY HISTORY: Negative for premature coronary artery disease according to the records. When the patient came to the emergency room, her blood pressure was 123/85, heart rate 78, white count 15.1, hematocrit 44, platelets 223. Sodium 137, potassium 3.4, chloride 104, CO2 23, BUN 19, creatinine 0.7. Troponin was 17.5. The patient had ST-segment elevation in anterior leads with deep Q-waves in the precordial leads. Ejection fraction 20% to 25% with a large area of anteroapical akinesis. She had a left main that was unremarkable, LAD 100% percent occlusion, and a distal mid vessel with limited [id number] collaterals. Circumflex was a large vessel with diffuse disease that is 70% to 80% stenotic. The RCA has an old 100% occlusion of the proximal vessels that are small, right to right collaterals noted. Ejection fraction 25%. Akinesis to the anterior, anteroseptal, anterolateral wall. The patient had then drug-eluting stents placed x4 in the distal mid and proximal left anterior descending artery. The patient has done well at this point in time. She is walking about. She has not had significant ventricular arrhythmias. She has no mechanical abnormalities and she has no heart failure. She is having no neurologic complications. At this point in time, she would like to go home. It has been recommended by the electrophysiology service that she go home only on a life vest. She, however, wants to leave today without a life vest, and we will get her to sign out AMA if she chooses to. Our recommendation is that she stay for the life vest. DISCHARGE MEDICATIONS: She is being discharged on prasugrel 10 mg daily, lisinopril 2.5 mg daily, Eplerenone 25 mg daily, Carvedilol 6.25 twice a day, atorvastatin 80 mg daily, aspirin 325 daily, warfarin 3 mg daily. FOLLOW UP: 1. She is following up with her primary care doctor. 2. She will follow up with transitional care. 3. She will follow up with cardiac rehab. 4. She will follow up with Dr. Ugalde. 5. She will follow up with the [facility]. 6. She will get an INR and a Cardiology visit at the office on Friday. She is being discharged on a Friday. She will be discharged with the life vest, unless she changes her mind and decides to go home without it. Her prognosis is guarded. She has a very significant myocardial infarction with significant wall motion abnormality and a long time occlusion of the LAD. She has significant circumflex disease. She has right coronary artery disease. As part of her evaluation, she will be getting a nuclear imaging study to look for further ischemia involving the circumflex coronary artery. All her questions have been answered. /[id number]/MODL MTDD
== END 2016-10-08 15:45 | disposition home or self-care (01) | DRG 246 ==
LOC: F2N 15:31
PROVIDERS: ADMIT Internal Medicine Cardiovascular Disease; ATTEND Internal Medicine Cardiovascular Disease
PROC: 027037Z Dilation of Coronary Artery, One Artery with Four or More Drug-eluting Intraluminal Devices, Percutaneous Approach (ICD-10-PCS; principal; 2016-10-04)
PROC: 02C03ZZ Extirpation of Matter from Coronary Artery, One Artery, Percutaneous Approach (ICD-10-PCS; principal; 2016-10-04)
PROC: B2111ZZ Fluoroscopy of Multiple Coronary Arteries using Low Osmolar Contrast (ICD-10-PCS; 2016-10-04)
PROC: 4A023N7 Measurement of Cardiac Sampling and Pressure, Left Heart, Percutaneous Approach (ICD-10-PCS; 2016-10-04)
PROC: B2161ZZ Fluoroscopy of Right and Left Heart using Low Osmolar Contrast (ICD-10-PCS; 2016-10-04)
DX: I21.09 ST elevation (STEMI) myocardial infarction involving other coronary artery of anterior wall (principal); F17.210 Nicotine dependence, cigarettes, uncomplicated; I95.9 Hypotension, unspecified
CPT/HCPCS: C1725; C1757; C1760; C1769; C1874; C1887; C9606; J0461; J0583; J1644; J2250; J3010; Q9967

== ENCOUNTER → 2016-12-20 | Outpatient (CLI) | payer OTHER | LOC: BHFA 08:30 | PROVIDERS: ATTEND Internal Medicine Cardiovascular Disease | DX: R06.02 Shortness of breath (principal); I50.9 Heart failure, unspecified; I21.3 ST elevation (STEMI) myocardial infarction of unspecified site; I25.10 Atherosclerotic heart disease of native coronary artery without angina pectoris | CPT/HCPCS: 78452; 93017; 93306; A9500; J2785 ==

== ENCOUNTER 2017-01-30 07:29 | Observation (INO) | payer OTHER ==
[2017-01-30] MEDS ORDERED: diphenhydrAMINE 25 MG CAP PO ONE ×2 (07:32→08:10)
[2017-01-30] MEDS ORDERED: FAMOTIDINE 20 MG TAB PO ONE (07:32)
[2017-01-30] MEDS ORDERED: ASPIRIN EC 325 MG TAB PO ONE ×2 (07:32→08:10)
[2017-01-30] MEDS ORDERED: DIAZEPAM 5 MG TAB PO ONE (07:32)
[2017-01-30] MEDS ORDERED: NS 1,000 ML IV ONE (07:32)
[2017-01-30 08:05] LABS: % IMMATURE GRANULYOCYTES 0.4 % (0.0-1.1); ABSOLUTE IMMATURE GRANULOCYTES 0.04 10^3/uL (0.00-0.10); ADD DIFF? NO; ADD MORPH? NO; ADD SCAN? NO; ATYPICAL LYMPHOCYTE FLAG 20 (0-99); FRAGMENT RBC FLAG 0 (0-99); HEMATOCRIT 30.3 % (38.0-47.0); HEMOGLOBIN 9.3 g/dL (12.6-16.3); LEFT SHIFT FLG 0 (0-99); LIPEMIA HEMOLYSIS FLAG 80 (0-99); MEAN CELL HEMOGLOBIN 25.2 pg (27.9-34.1); MEAN CELL HEMOGLOBIN CONCENTR. 30.7 g/dL (32.4-36.7); MEAN CELL VOLUME 82.1 fL (81.5-99.8); MEAN PLATELET VOLUME 10.8 fL (8.7-11.7); PLATELET CLUMPS FLAG 0 (0-99); PLATELET COUNT 333 10^3/uL (150-400); RED BLOOD CELL COUNT 3.69 10^6/uL (4.18-5.33); RED CELL DISTRIBUTION WIDTH 14.8 % (11.5-15.2)
--- NOTE | 2017-01-30 08:05 | CPEKG ---
Heart Rate: 67 RR Interval: 896 P-R Interval: 204 QRSD Interval: 96 QT Interval: 384 QTC Interval: 406 P [place]: 52 QRS [place]: -2 T Wave [place]: 175 EKG Severity - ABNORMAL ECG - EKG Impression: SINUS RHYTHM EKG Impression: LOW VOLTAGE IN FRONTAL LEADS EKG Impression: CONSIDER ANTEROSEPTAL INFARCT EKG Impression: ABNORMAL T, CONSIDER ISCHEMIA, ANT-LAT LEADS Electronically Signed By: Mando Funk 30-Jan-2017 14:15:08
[2017-01-30] MEDS ORDERED: FAMOTIDINE 20 MG TAB ONE (08:10)
[2017-01-30] MEDS ORDERED: DIAZEPAM 5 MG TAB ONE (08:11)
[2017-01-30 08:17] LABS: INR 1.1 (0.83-1.16); PROTIME(PATIENT) 14.1 SEC (12.0-15.0)
[2017-01-30 08:36] LABS: ANION GAP 13 mEq/L (8-16); CALCIUM 9.7 mg/dL (8.5-10.4); CARBON DIOXIDE 21 mEq/l (22-31); CHLORIDE 106 mEq/L (97-110); CHOLESTEROL 100 mg/dL (140-220); CHOLESTEROL/HDL RATIO 2.56 RATIO (1.00-4.44); CREATININE 0.9 mg/dL (0.6-1.0); GLOMERULAR FILTRATION RATE > 60; GLUCOSE 93 mg/dL (70-100); HIGH DENSITY LIPOPROTEIN 39 mg/dL (40-85); LDL/HDL RATIO 1.08 RATIO (1.00-3.22); LOW DENSITY LIPOPROTEIN 42 mg/dL (80-100); MAGNESIUM 1.9 mg/dL (1.6-2.3); NON-HIGH DENSITY LIPOPROTEIN 61 mg/dL (90-129); POTASSIUM 3.8 mEq/L (3.5-5.2); SODIUM 140 mEq/L (134-144); TRIGLYCERIDE 96 mg/dL (35-135); VERY LOW DENSITY LIPOPROTEINS 19 mg/dL (8-25)
[2017-01-30] MEDS ORDERED: LIDOCAINE 1% 300 MG/30 ML SDV ONE (09:58)
[2017-01-30] MEDS ORDERED: IOPAMIDOL (ISOVUE-370) 150 ML BTL IV ONE (09:59)
[2017-01-30] MEDS ORDERED: fentaNYL 100 MCG/2 ML INJ ONE (10:11)
[2017-01-30] MEDS ORDERED: MIDAZOLAM 2 MG/2 ML VIAL ONE (10:11)
[2017-01-30] MEDS ORDERED: BIVALIRUDIN 250 MG/5 ML VIAL IV ONE (10:22)
[2017-01-30] MEDS ORDERED: NITROGLYCERIN 1,500 MCG/15 ML VIAL MISC ONE (10:23)
[2017-01-30] MEDS ORDERED: CLOPIDOGREL BISULFATE 75 MG TAB ONE (10:55)
[2017-01-30] MEDS ORDERED: CLOPIDOGREL BISULFATE 75 MG TAB PO ONE (11:35)
[2017-01-30] MEDS ORDERED: ONDANSETRON 4 MG/2 ML VIAL IVP PRN (11:35)
[2017-01-30] MEDS ORDERED: LORazepam 2 MG/ML INJ IVP PRN (11:35)
[2017-01-30] MEDS ORDERED: NITROGLYCERIN 0.4 MG BTL SL PRN (11:35)
[2017-01-30] MEDS ORDERED: ONDANSETRON DISINTEGRATING 4 MG TAB PO PRN (11:35)
[2017-01-30] MEDS ORDERED: ATROPINE SULFATE 1 MG/10 ML SYR IVP PRN (11:35)
[2017-01-30] MEDS ORDERED: ACETAMINOPHEN 325 MG TAB PO PRN (11:35)
[2017-01-30] MEDS ORDERED: TEMAZEPAM 15 MG CAP PO PRN (11:35)
[2017-01-30] MEDS ORDERED: NS 1,000 ML IV SCH (11:45)
--- NOTE | 2017-01-30 12:38 | CPEKG ---
Heart Rate: 62 RR Interval: 968 P-R Interval: 224 QRSD Interval: 98 QT Interval: 424 QTC Interval: 431 P [place]: 73 QRS [place]: 26 T Wave [place]: 221 EKG Severity - ABNORMAL ECG - EKG Impression: SINUS RHYTHM EKG Impression: FIRST DEGREE AV BLOCK EKG Impression: LOW VOLTAGE IN FRONTAL LEADS EKG Impression: CONSIDER ANTEROSEPTAL INFARCT EKG Impression: ABNORMAL T, PROBABLE ISCHEMIA, ANT-LAT LEADS Electronically Signed By: Mando Funk 30-Jan-2017 14:14:59
[2017-01-30] MEDS: CARVEDILOL 6.25 MG TAB PO SCH (18:32)
--- NOTE | 2017-01-30 20:19 | CPIP ---
[f rep st] INVASIVE CARDIAC PROCEDURE PROCEDURE PERFORMED: 1. Selective coronary angiography. 2. Left heart catheterization. 3. Left ventriculogram. 4. Percutaneous transluminal coronary angioplasty and stent placement of the proximal left circumfl ex vessel with the use of a 3.5 x 20 Synergy drug-eluting stent. COMPLICATIONS: None. INDICATION FOR THE PROCEDURE: 1. Ongoing shortness of breath consistent with [place] Heart Association class 3 symptoms of heart failure, with known obstructive disease of the proximal and dominant left circumflex vessel. 2. Abnormal nuclear stress test considered intermediate risk secondary to moderate size inferolater al perfusion deficit matching to the patient's known anatomy. The patient also has a persistent isc hemic cardiomyopathy. Ejection fraction estimated at approximately 35%-40% by echocardiography. PROCEDURE IN DETAIL: After informed consent was obtained and n.p.o. status was confirmed, the regio n of the right groin was cleaned, prepped and draped in sterile fashion. A micropuncture set was us ed to gain access to the right common femoral artery with single acupuncture of the vessel. The pat ient then underwent placement of a 6-Azerbaijani sheath to the right common femoral artery. A JR4, JL4 a nd 6-Azerbaijani pigtail catheter were used for diagnostic catheterization. Standard wire exchange techn ique was utilized for all catheter exchanges. The left main coronary lumen is approximately 6 mm in size and bifurcates into an LAD and circumflex system. The LAD has been previously stented from the proximal 3rd along the entire course of the a nterior wall. There are 2 diagonal branches which exit the stented area, both of which are widely p atent but quite small, and less than 1 mm in size. A small ramus intermedius branch which is approx imately 1 mm in size is present, and there is disease in the ostial take-off that vessel. It is not a candidate for intervention. The proximal portion of the dominant left circumflex vessel reveals diffuse atherosclerosis with associated calcification consistent with underlying atherosclerosis. M aximal luminal stenosis is above 70%, and in some eccentric views may be as severe as 95%. QCA was able to document a 55% luminal narrowing. Although in the WILL caudal projection, there appears to b e a chunk of calcium in the proximal portion of the vessel which may be much more obstructive. We turned our attention to the proximal left circumflex lesion. A 6-Azerbaijani EBU 3.5 guiding catheter was used for guide catheter support. A 0.014 Intuition wire was advanced across the lesion in ques tion under direct fluoroscopic and angiographic guidance. The lesion was then ballooned with a 3.5 x 16 emerge balloon at a maximum pressure of 12 atmospheres with good angiographic results. We then implanted the stent, which was a 3.5 x 20 Synergy drug-eluting stent at a maximum pressure of 16 at mospheres with excellent angiograph results, and 5% residual stenosis status post PTCA and stent everardo cement. The patient tolerated the procedure well without immediate complication and underwent a suc cessful Angio-Seal arteriotomy repair. Of note, is that several of the small obtuse marginal branch es of the circumflex are occluded in their mid segment with bridging collaterals. These vessels are small and less than 1.5 mm in size, and therefore not likely to be good candidates for percutaneous intervention. Hopefully improving the blood flow to the proximal source of the collaterals may hel p to improve blood flow to the patient's inferolateral wall. The patient underwent left heart jhoan terization demonstrating elevated left ventricular end-diastolic pressure measured at 24 mmHg. The patient underwent left ventriculogram in the FARAH projection demonstrating a hypercontractile base wi th mid cavity hypertrophy, distal anterior wall apical and distal inferior wall hypokinesis consiste nt with a prior anterior wall myocardial infarction. A filling defect suggestive of left ventricula r thrombus is not identified. There was at least 2+ mitral regurgitation under pressurized injectio n. In the visualized portion of the thoracic aorta reveals 3 sinuses of Valsalva most consistent wi th a trileaflet aortic valve. There is evidence of diffuse atherosclerosis of the aorta including c alcification in the aortic knob as well as in the descending portion of the thoracic aorta. No lety k dissection or aneurysm is identified. The right coronary artery was also evaluated and is a nondo minant vessel, and totally occluded near its takeoff from the right coronary cusp. FINAL IMPRESSION: Severe iliamna vessel coronary disease with widely patent stents and NAM-3 flow w ithin the previously stented left anterior descending. There is a total occlusion of a nondominant right coronary, a preprocedural 70%-95% obstruction of the proximal left circumflex identified with 2 total occlusions of small obtuse marginal branches distal to that, with 5% residual stenosis statu s post percutaneous transluminal coronary angioplasty and stent placement. The patient should be co ntinued on aggressive medical therapy to treat for heart failure and to help reduce the risk of athe rosclerosis progression. The patient will benefit from an echocardiogram in 45 days if the ejection fraction, which was estimated here at 35%, remains below 35%. The patient would be a candidate for a defibrillator on the basis of made it to criteria, and that should be discussed and offered to th e patient if ejection fraction does not improve in 45 days following today's procedure. The patient does know to report promptly to the emergency department should she experience chest discomfort, pr essure, tightness, shortness of breath, syncope, near syncope, or sensation of fluttering in her arik st, all of which could be a sign of serious post myocardial infarction complications. Copy requested to: Primary Care Physician /[id number]/MODL
[2017-01-31 04:49] VITALS: O2SAT 97
[2017-01-31 05:00] LABS: % IMMATURE GRANULYOCYTES 0.3 % (0.0-1.1); ABSOLUTE IMMATURE GRANULOCYTES 0.03 10^3/uL (0.00-0.10); ADD DIFF? NO; ADD MORPH? NO; ADD SCAN? NO; ATYPICAL LYMPHOCYTE FLAG 10 (0-99); FRAGMENT RBC FLAG 0 (0-99); HEMOGLOBIN 8.4 g/dL (12.6-16.3); LEFT SHIFT FLG 0 (0-99); LIPEMIA HEMOLYSIS FLAG 80 (0-99); MEAN CELL HEMOGLOBIN 24.6 pg (27.9-34.1); MEAN CELL VOLUME 82.1 fL (81.5-99.8); MEAN PLATELET VOLUME 10.9 fL (8.7-11.7); PLATELET CLUMPS FLAG 0 (0-99); PLATELET COUNT 278 10^3/uL (150-400); RED BLOOD CELL COUNT 3.41 10^6/uL (4.18-5.33); RED CELL DISTRIBUTION WIDTH 14.9 % (11.5-15.2)
[2017-01-31 05:13] LABS: ALBUMIN 3.1 g/dL (3.5-5.0); ANION GAP 6 mEq/L (8-16); ASPARTATE AMINOTRANSFERASE 32 IU/L (14-46); BILIRUBIN,TOTAL 0.4 mg/dL (0.1-1.4); CALCIUM 9.7 mg/dL (8.5-10.4); CARBON DIOXIDE 23 mEq/l (22-31); CHLORIDE 106 mEq/L (97-110); CREATININE 0.9 mg/dL (0.6-1.0); GLOMERULAR FILTRATION RATE > 60; GLUCOSE 74 mg/dL (70-100); LACTATE DEHYDROGENASE 525 IU/L (313-618); SODIUM 135 mEq/L (134-144)
[2017-01-31] MEDS: LOSARTAN POTASSIUM 25 MG TAB PO SCH (07:50)
[2017-01-31] MEDS: CARVEDILOL 6.25 MG TAB PO SCH (07:51)
[2017-01-31 08:26] VITALS: BP 134/67; PULSE 68; RESP 18; TEMP 98
--- NOTE | 2017-01-31 08:46 | CPEKG ---
Heart Rate: 74 RR Interval: 811 P-R Interval: 196 QRSD Interval: 90 QT Interval: 384 QTC Interval: 426 P [place]: 48 QRS [place]: 38 T Wave [place]: 165 EKG Severity - ABNORMAL ECG - EKG Impression: SINUS RHYTHM EKG Impression: LOW VOLTAGE IN FRONTAL LEADS EKG Impression: CONSIDER ANTEROSEPTAL INFARCT EKG Impression: ABNORMAL T, CONSIDER ISCHEMIA, LATERAL LEADS Electronically Signed By: David Ugalde 31-Jan-2017 08:47:30
[2017-01-31] MEDS ORDERED: ASPIRIN EC 325 MG TAB PO SCH ×2 (09:00)
[2017-01-31] MEDS ORDERED: CLOPIDOGREL BISULFATE 75 MG TAB PO SCH ×2 (09:00)
[2017-01-31] MEDS ORDERED: SPIRONOLACTONE 25 MG TAB PO SCH (09:00)
[2017-01-31] MEDS ORDERED: ATORVASTATIN CALCIUM 40 MG TAB PO SCH (09:00)
[2017-01-31] MEDS ORDERED: FUROSEMIDE 20 MG TAB PO SCH (09:45)
--- NOTE | 2017-01-31 17:16 | GDS ---
[f rep st] DISCHARGE SUMMARY DISCHARGE DIAGNOSES: 1. Coronary artery disease with late presentation myocardial infarction in September of 2016, status po st percutaneous transluminal coronary angioplasty and stenting x4 to the left anterior descending. 2. Chronic right coronary artery occlusion of 100%. 3. Moderate left circumflex stenosis of 75%, based on September cardiac catheterization with ischemia i n the anteroapical distribution, status post percutaneous intervention to the left circumflex on . 4. Tobacco abuse with cessation in September of 2016. 5. Chronic systolic heart failure with an ejection fraction of 42%. 6. Chronic obstructive pulmonary disease. 7. Dyslipidemia, on medical management. PROCEDURES: On 01/30/2017 cardiac catheterization due to ongoing NYHA class 3 symptoms of shortness of breath on exertion. Ejection fraction of 35% to 40% on echo. Dominant left circumflex with 70% stenosis, and in some views as severe as 95%. Status post PTCA and stenting with a 3.5 x 28 Synerg y drug-eluting stent. BRIEF HISTORY: Please see dictated H and P from Dr. Reddy for complete details. In brief, the bear ent is a 71-year-old female with a past medical history of tobacco abuse, having quit in September, CAD, status post late presentation of an anterior IL in September of 2016, status post PTCA and sten ting to the LAD, ischemic cardiomyopathy with an EF of 42% with NYHA functional class 3 symptoms, mo derate MR, [id number] TR, RVSP of 41 mmHg. She has been noting fatigue and shortness of breat h. An MPI was obtained showing a large anterior apical IL with mild nahun-infarct ischemia, affectin g the anterior apical inferior lateral pollack. The patient proceeded to left heart catheterization w ith PTCA and stenting performed to the left circumflex. On day of discharge, the patient denies any groin pain, dyspnea, or chest pain. She has had no ventricular tachycardia noted on telemetry. HOSPITAL COURSE BY PROBLEM: 1. Severe CAD. She is status post PTCA and stenting to her circumflex. She has been on dual anti- platelet therapy, which will be continued. Her aspirin dose is currently 325 mg daily, which can be stopped in 1 month likely at the discretion of her primary floor supervisor. 2. Ischemic cardiomyopathy with an EF of between 35 and 42%. This is being followed by Dr. Reddy. She is appropriately medically managed. 3. Dyslipidemia. She is currently on atorvastatin. Her LDL is 42, total cholesterol 100, triglyce rides 96, HDL of 39. 4. Fatigue. Screening TSH was obtained and is within normal limits at 2.95. CBC with a mildly dec reased hemoglobin and hematocrit at 8.4 and 28. 5. Large anterior myocardial infarction. She has been on warfarin therapy. She has had her Coumad in held prior to her heart catheterization. She is advised to resume this tonight, and have followu p in the Coumadin Clinic next week. PHYSICAL EXAM: VITAL SIGNS: On day of discharge, blood pressure 134/67, heart rate 68, respiration s 18, O2 saturation 97% on room air. GENERAL: She is a pleasant female in no apparent distress. E YES: PERRL. HEART: Regular rate and rhythm. LUNGS: Clear. GROIN: Right groin site is stable. EXTREMITIES: She has 1+ PT and DP pulses. There is no peripheral edema present. LABORATORY DATA: CBC with WBC 10.6, hemoglobin 8.4, hematocrit 28, platelet count 278. BMP with so dium 135, potassium 5, chloride 106, CO2 23, BUN 15, creatinine 0.9, glucose of 74, NT proBNP of 1,3 30. RESULTS PENDING: None. DIET: Cardiac. ACTIVITY: Groin precautions reviewed. DISCHARGE MEDICATIONS: Please see med reconciliation for complete details. She can resume her spir onolactone, Cozaar, furosemide, clopidogrel, atorvastatin, aspirin, warfarin, carvedilol. FOLLOWUP INSTRUCTIONS: 1. Groin precautions. 2. Follow up with Dr. Reddy as scheduled on 02/10/2017. /[id number]/MODL
== END 2017-01-31 10:33 | disposition home or self-care (01) ==
LOC: FCATH 07:29 → F2W 11:17
PROVIDERS: ADMIT Internal Medicine Cardiovascular Disease; ATTEND Internal Medicine Cardiovascular Disease
PROC: B215YZZ Fluoroscopy of Left Heart using Other Contrast (ICD-10-PCS; principal; 2017-01-30)
PROC: 027034Z Dilation of Coronary Artery, One Artery with Drug-eluting Intraluminal Device, Percutaneous Approach (ICD-10-PCS; principal; 2017-01-30)
PROC: 4A023N7 Measurement of Cardiac Sampling and Pressure, Left Heart, Percutaneous Approach (ICD-10-PCS; principal; 2017-01-30)
PROC: B211Y10 Fluoroscopy of Multiple Coronary Arteries using Other Contrast, Laser Intraoperative (ICD-10-PCS; principal; 2017-01-30)
DX: I25.10 Atherosclerotic heart disease of native coronary artery without angina pectoris (principal); I25.82 Chronic total occlusion of coronary artery; I25.2 Old myocardial infarction; I50.22 Chronic systolic (congestive) heart failure
CPT/HCPCS: 93005; 93458; C1725; C1760; C1769; C1874; C1887; C9600; J0583; J1644; J2250; J3010; Q9967

== ENCOUNTER → 2017-02-10 | Outpatient (CLI) | payer OTHER | LOC: BHFA 10:15 | PROVIDERS: ATTEND Internal Medicine Cardiovascular Disease | DX: I25.10 Atherosclerotic heart disease of native coronary artery without angina pectoris (principal); I95.9 Hypotension, unspecified; D64.9 Anemia, unspecified ==

== ENCOUNTER → 2018-02-11 | Outpatient (CLI) | payer OTHER | LOC: BHFA 11:30 | PROVIDERS: ATTEND Internal Medicine | DX: I50.9 Heart failure, unspecified (principal) ==